=== PATIENT | female | born 1980 | race Caucasian/White ===

== ENCOUNTER → 2021-12-01 | Outpatient (CLI) | payer BC | LOC: KOH-I 13:43 | DX: R07.89 Other chest pain (principal); M95.4 Acquired deformity of chest and rib; R91.8 Other nonspecific abnormal finding of lung field | CPT/HCPCS: 71046 ==

== ENCOUNTER → 2021-12-16 | Outpatient (CLI) | payer BC | LOC: KOH-I 09:44 | DX: R07.9 Chest pain, unspecified (principal) | CPT/HCPCS: 71250 ==

== ENCOUNTER → 2022-05-18 | Outpatient (CLI) | payer BC | LOC: KOH-I 09:21 | DX: W19.XXXA Unspecified fall, initial encounter (principal) | CPT/HCPCS: 72220; 73502 ==